=== PATIENT | female | born 1970 | race Asian ===

== ENCOUNTER 2016-08-28 21:01 | Inpatient (IN) | payer BC ==
[~2016-08-28] VITALS: Ht 154.9 cm; Wt 40.6 kg
[2016-08-28] MEDS ORDERED: SODIUM CHLORIDE 0.9% 1000ML 1,000 ML IV STA (22:30)
[2016-08-28 22:38] LABS: BASO % 0.1 %; BASO ABS # 0.01 K/uL (0-0.2); COMPLETE YES; EOS % 0.5 %; HEMATOCRIT 37.9 % (37-47); IG% 0.2 %; LYMPH % 6.8 %; MEAN CORPUSCULAR HEMOGLOBIN 33.2 pg (25-34); MEAN CORPUSCULAR HGB CONC 33.2 g/dl (32-36); MEAN PLATELET VOLUME 9.8 fL (7.4-10.4); MONO % 4.1 %; NEUT % 88.3 %; PLATELET COUNT 258 K/uL (130-400); RED BLOOD COUNT 3.79 M/uL (4.2-5.4); WHITE BLOOD COUNT 10.23 K/uL (4.8-10.8)
[2016-08-28] MEDS ORDERED: ONDANSETRON INJ 2 MG/ML 2 ML VIAL IV STA (22:51)
[2016-08-28 22:54] LABS: URINE APPEARANCE CLOUDY (CLEAR); URINE COLOR DK YELLOW; URINE EPITHELIAL CELL AUTO >30 /lpf (0-5); URINE NITRITE NEG (NEG); URINE SPECIFIC GRAVITY 1.024 (1.000-1.030); UROBILINOGEN NEG (NEG); ZZUR CULT IF INDIC CLEAN CATCH YES
[2016-08-28 23:02] LABS: MANUAL MICROSCOPIC REQUIRED? NO; REVIEW REQ? YES
[2016-08-28 23:03] LABS: URINE BILIRUBIN NEG (NEG)
[2016-08-28] MEDS: MoRPHine SULFATE 4 MG/ML 1 ML CARP\\VIAL IV PRN (23:06)
[2016-08-28 23:07] LABS: ALKALINE PHOSPHATASE 33 U/L (45-117); ALT/SGPT 22 U/L (12-78); BLOOD UREA NITROGEN 11 mg/dl (7-18); BUN/CREATININE RATIO 13.1 (10-20); CARBON DIOXIDE 27 mmol/L (21-32); CHLORIDE 103 mmol/L (98-107); CREATININE 0.84 mg/dl (0.60-1.20); GLUCOSE 101 mg/dl (70-99); SODIUM 139 mmol/L (136-145)
[2016-08-28 23:38] LABS: POTASSIUM 3.6 mmol/L (3.5-5.1)
[2016-08-29] MEDS ORDERED: OPTIRAY 320 IV PRN (00:15)
[2016-08-29 00:18] LABS: PREG INTERNAL NEGATIVE QC NEG CLEAR BACKGROUND; PREG INTERNAL POSITIVE QC POS CONTROL LINE
[2016-08-29] MEDS: MoRPHine SULFATE 4 MG/ML 1 ML CARP\\VIAL IV PRN (01:31)
[2016-08-29] MEDS ORDERED: ACETAMINOPHEN 325 MG TAB PO PRN (02:45)
[2016-08-29] MEDS ORDERED: ONDANSETRON INJ 2 MG/ML 2 ML VIAL IV PRN (02:45)
[2016-08-29] MEDS ORDERED: MoRPHine SULFATE 2 MG/ML CARP IV PRN (02:45)
[2016-08-29 03:20] VITALS: Ht 154.9 cm; Wt 40.6 kg
[2016-08-29] MEDS: SODIUM CHLORIDE 0.9% 1000ML 1,000 ML IV SCH ×3 (03:25→22:13)
[2016-08-29 03:30] VITALS: BP 90/56; PULSE 52; TEMP 36.6; O2SAT 99
--- NOTE | 2016-08-29 03:38 | EMERGENCY ROOM VISIT NOTE ---
History Report prepared by Suyapa: Talisha Vaughn Under the Supervision of: Dr. Howard Mccoy M.D. First contact with patient: 22:30 Chief Complaint: ABDOMINAL PAIN Stated Complaint: ABD PAIN History of Present Illness The patient is a 45 year old female who presents to the Emergency Room with complaints of worsened upper abdominal pain that initially began last evening around 2100. She currently rates her discomfort as an 8/10 in severity. The patient states that she started noticing the abdominal pain last evening and noticed increased pain with ambulation. She states that she was up all night with the pain and additionally tried Advil without relief of her symptoms. The patient states that this morning she went to Urgent Care and was given Zofran for her nausea. She states that she slept for a few hours and felt better when she woke up. The patient states that she ate a small amount this evening, and noticed that her pain worsened. She states that she vomited as well. The patient states that she had similar pain twenty years ago, noting that she had an appendectomy and then six months later she had a bowel obstruction. She denies being on any prescription medications. Pt denies LOC, headache, fevers, chills, diaphoresis, visual changes, neck pain, chest pain, breathing difficulties, back pain, melena, hematochezia, urinary symptoms, numbness, weakness, lymphadenopathy, rash, or other complaints. Source of History: patient Onset: last evening around 2100 Position: abdomen (upper) Symptom Intensity: 8/10 Timing: worsening Modifying Factors (Worsening): other (ambulation) Modifying Factors (Relieving): other (zofran) Associated Symptoms: + nausea, + vomiting Review of Systems See HPI for pertinent positives and negatives. A total of ten systems were reviewed and were otherwise negative. Past Medical & Surgical Medical Problems: (1) Small bowel obstruction due to adhesions Surgical Problems: (1) S/P appendectomy Family History Patient reports no known family medical history. Social History Smoking Status: Current Every Day Smoker Alcohol Use: occasionally Marital Status: Housing Status: lives with family Occupation Status: employed Current/Historical Medications No Active Prescriptions or Reported Meds Allergies Coded Allergies: No Known Allergies (Unverified , 08/28/16) Physical Exam Vital Signs Date Time Temp Pulse Resp B/P (MAP) Pulse Ox O2 Delivery O2 Flow Rate FiO2 08/29/16 01:45 55 26 103/60 100 Room Air 08/28/16 23:29 63 94/61 94 Room Air 08/28/16 21:07 36.7 63 20 93/62 95 Room Air Physical Exam GENERAL: Awake, alert, uncomfortable-appearing, in no distress HENT: Normocephalic, atraumatic. Oropharynx unremarkable. EYES: Normal conjunctiva. Sclera non-icteric. NECK: Supple. No nuchal rigidity. FROM. No JVD. RESPIRATORY: Clear to auscultation. CARDIAC: Regular rate, normal rhythm. Extremities warm and well perfused. Pulses equal. ABDOMEN: Diffuse abdominal tenderness to palpation. Soft, non-distended. No rebound or guarding. No masses. RECTAL: Deferred. MUSCULOSKELETAL: Chest examination reveals no tenderness. The back is symmetrical on inspection without obvious abnormality. There is no CVA tenderness to palpation. No joint edema. LOWER EXTREMITIES: Calves are equal size bilaterally and non-tender. No edema. No discoloration. NEURO: Normal sensorium. No sensory or motor deficits noted. SKIN: No rash or jaundice noted. Medical Decision & Procedures ER Provider Diagnostic Interpretation: Radiology results as stated below per my review and radiologist interpretation: CT ABDOMEN AND PELVIS: Small bowel obstruction. Distal transition point in the mid pelvis (image 51, series 2). Component of closed-loop obstruction should be considered as there is focal narrowing of the more proximal dilated bowel with a swirling appearance (images 56-59, series 2). Small amount of free fluid. No free air. 9 mm right renal hypodensity, statistically likely a cyst but measuring denser than fluid. Radiologist: Miguelangel Pierson MD Study ready at 0131 and initial results transmitted at 0150 Laboratory Results 08/28/16 21:55 Red Blood Count 3.79, Mean Corpuscular Volume 100.0, Mean Corpuscular Hemoglobin 33.2, Mean Corpuscular Hemoglobin Concent 33.2, Mean Platelet Volume 9.8, Neutrophils (%) (Auto) 88.3, Lymphocytes (%) (Auto) 6.8, Monocytes (%) ( Auto) 4.1, Eosinophils (%) (Auto) 0.5, Basophils (%) (Auto) 0.1, Neutrophils # ( Auto) 9.03, Lymphocytes # (Auto) 0.70, Monocytes # (Auto) 0.42, Eosinophils # ( Auto) 0.05, Basophils # (Auto) 0.01 08/28/16 21:55 08/28/16 23:11 Test 08/28/16 21:55 08/28/16 23:11 White Blood Count 10.23 K/uL (4.8-10.8) Red Blood Count 3.79 M/uL (4.2-5.4) Hemoglobin 12.6 g/dL (12.0-16.0) Hematocrit 37.9 % (37-47) Mean Corpuscular Volume 100.0 fL (80-100) Mean Corpuscular Hemoglobin 33.2 pg (25-34) Mean Corpuscular Hemoglobin Concent 33.2 g/dl (32-36) Platelet Count 258 K/uL (130-400) Mean Platelet Volume 9.8 fL (7.4-10.4) Neutrophils (%) (Auto) 88.3 % Lymphocytes (%) (Auto) 6.8 % Monocytes (%) (Auto) 4.1 % Eosinophils (%) (Auto) 0.5 % Basophils (%) (Auto) 0.1 % Neutrophils # (Auto) 9.03 K/uL (1.4-6.5) Lymphocytes # (Auto) 0.70 K/uL (1.2-3.4) Monocytes # (Auto) 0.42 K/uL (0.11-0.59) Eosinophils # (Auto) 0.05 K/uL (0-0.5) Basophils # (Auto) 0.01 K/uL (0-0.2) RDW Standard Deviation 48.0 fL (36.4-46.3) RDW Coefficient of Variation 13.1 % (11.5-14.5) Immature Granulocyte % (Auto) 0.2 % Immature Granulocyte # (Auto) 0.02 K/uL (0.00-0.02) Urine Color DK YELLOW Urine Appearance CLOUDY (CLEAR) Urine pH 6.0 (4.5-7.5) Urine Specific [place] 1.024 (1.000-1.030) Urine Protein NEG (NEG) Urine Glucose (UA) NEG (NEG) Urine Ketones 3+ (NEG) Urine Occult Blood 3+ (NEG) Urine Nitrite NEG (NEG) Urine Bilirubin NEG (NEG) Urine Urobilinogen NEG (NEG) Urine Leukocyte Esterase MODERATE (NEG) Urine WBC (Auto) 10-30 /hpf (0-5) Urine RBC (Auto) 0-4 /hpf (0-4) Urine Hyaline Casts (Auto) 5-10 /lpf (0-5) Urine Epithelial Cells (Auto) >30 /lpf (0-5) Urine Bacteria (Auto) NEG (NEG) Urine Crystals CALCIUM OXALATE (NONE Anion Gap 9.0 mmol/L (3-11) Est Creatinine Clear Calc Drug Dose 54.8 ml/min Estimated GFR () 98.0 Estimated GFR (Non- 84.5 BUN/Creatinine Ratio 13.1 (10-20) Calcium Level 9.0 mg/dl (8.5-10.1) Total Bilirubin 0.7 mg/dl (0.2-1) Alanine Aminotransferase (ALT/SGPT) 22 U/L (12-78) Alkaline Phosphatase 33 U/L (45-117) Total Protein 6.6 gm/dl (6.4-8.2) Albumin 3.8 gm/dl (3.4-5.0) Lipase 69 U/L (73-393) Human Chorionic Gonadotropin, Qual NEG (NEG) Direct Bilirubin 0.1 mg/dl (0-0.2) Aspartate Amino Transf (AST/SGOT) 10 U/L (15-37) Laboratory results reviewed by me Medications Administered Medications (Trade) Dose Ordered Sig/Yu Route Start Time Stop Time Status Last Admin Dose Admin Sodium Chloride 1,000 ml @ 999 mls/hr Q1H1M STAT IV 08/28/16 22:30 08/28/16 23:30 DC 08/28/16 22:41 999 MLS/HR Ondansetron HCl (Zofran Inj) 4 mg NOW STAT IV 08/28/16 22:51 08/28/16 22:54 DC 08/28/16 23:06 4 MG Morphine Sulfate (MoRPHine SULFATE INJ) 4 mg Q15M PRN IV 08/28/16 23:00 09/11/16 22:59 08/29/16 01:31 4 MG ED Course 2230: Ordered Sodium Chloride 1000 ml @ 999 mls/hr IV. 2248: The patient was evaluated in room C12B. A complete history and physical exam was performed. 2251: Ordered Zofran Inj 4 mg IV. 2300: Ordered Morphine Sulfate 4 mg IV. 2325: I reevaluated the patient and she is feeling better. 0200: I reevaluated the patient and she is resting comfortably. I discussed the exam findings with her and I discussed the treatment plan. She verbalized complete understanding and agreement. She is going to be evaluated for further treatment. 0206: I discussed the patient's case with Joy Watt. He will evaluate the patient for further treatment. Medical Decision Medication Reconciliation: I attest that I have personally reviewed the patient' s current medication list Blood pressure screening: Patient was found to have low blood pressure on screening and does not require follow-up. Triage Nursing notes reviewed. The patient's presentation and history were concerning for abdominal pain. Etiologies such as obstruction, diverticulitis, inflammatory bowel disease, renal colic, PUD, biliary pathology, pancreatitis, mesenteric ischemia, aortic pathology, infections, genitourinary, UTI, perforated viscus, as well as others were entertained. The patient was evaluated. She was treated with normal saline, Zofran and morphine. She felt much better with this. She had minimal symptoms afterwards. She underwent CT imaging and blood work. The patient had an unremarkable cbc, chemistry panel, LFTs and lipase. Urinalysis may have been somewhat contaminated. Culture is pending. CT imaging was concerning for a small bowel obstruction. I discussed this with the patient. She will need further evaluation and management in the hospital. As she is asymptomatic at this time an NG tube was not immediately placed. I did discuss this with internal medicine. The patient will be evaluated for further management and consultation as necessary. Consults Time Called: [phone] Consulting Physician: Joy Watt Returned Call: [phone] I discussed the patient's case with Joy Watt. He will evaluate the patient for further treatment. Impression Primary Impression: Small bowel obstruction Scribe Attestation The scribe's documentation has been prepared under my direction and personally reviewed by me in its entirety. I confirm that the note above accurately reflects all work, treatment, procedures, and medical decision making performed by me. Departure Information Dispostion Being Evaluated By Hospitalist Prescriptions No Active Prescriptions or Reported Meds Referrals No Doctor, Assigned (PCP)
--- NOTE | 2016-08-29 04:10 | History and Physical ---
History & Physical Date & Time of Service: Aug 29, 2016 at 04:01 Chief Complaint: Small Bowel Obstruction Due To Adhesions Primary Care Physician: No Doctor, Assigned History of Present Illness Source: patient This is a 45 year old female with a hx. of appendectomy ~ 20 years ago, presents with acute abdominal pain; nausea - states she went to an urgent care facility due to her abdominal pain and distention; was given Zofran, but was told to come to the ER for further evaluation. She presented to the ER and CT was done; showed likely partial small bowel obstruction; she states that she's had this in the past once before after her appendectomy; feels the same as before. Last BM was August 27 in the AM. No fevers/chills. Past Medical/Surgical History Surgical Problems: (1) S/P appendectomy Status: Resolved Family History Patient reports no known family medical history. Social History Smoking Status: Current Every Day Smoker Marital Status: Occupational Status: employed Allergies Coded Allergies: No Known Allergies (Unverified , 08/28/16) Home Medications No Active Prescriptions or Reported Meds Review of Systems Constitutional: + weakness, No fever, No chills Respiratory: No cough, No shortness of breath Cardiovascular: No chest pain, No edema, No palpitations Abdomen: + pain, + nausea, No vomiting, No diarrhea, No constipation, No GI bleeding Musculoskeletal: No joint pain Genitourinary - Female: No dysuria, No urinary frequency, No urinary urgency, No urinary incontinence, No urinary retention, No hematuria Neurologic: + weakness, No numbness/tingling, No vertigo, No balance problems Psychiatric: No depression symptoms Hematologic / Lymphatic: No abnormal bleeding/bruising Allergic / Immunologic: No environmental allergies, No seasonal allergies Physical Exam Vital Signs Date Time Temp Pulse Resp B/P (MAP) Pulse Ox O2 Delivery O2 Flow Rate FiO2 08/29/16 03:30 36.6 52 17 90/56 (67) 99 Room Air 08/29/16 03:07 48 85/52 97 08/29/16 01:45 55 26 103/60 100 Room Air 08/28/16 23:29 63 94/61 94 Room Air 08/28/16 21:07 36.7 63 20 93/62 95 Room Air General Appearance: no apparent distress, + thin Head: normocephalic, atraumatic Eyes: normal inspection Respiratory/Chest: chest non-tender, lungs clear, normal breath sounds, no respiratory distress, no accessory muscle use Cardiovascular: regular rate, rhythm, no edema, no murmur Abdomen/GI: + tenderness (diffusely), + abnormal bowel sounds (decreased bowel sounds), + distended Extremities/Musculoskelatal: normal capillary refill, no pedal edema Neurologic/Psych: no motor/sensory deficits, alert, normal mood/affect Skin: normal color Lymphatic: no adenopathy Diagnostics Laboratory Results Results Past 24 Hours Test 08/28/16 21:55 08/28/16 23:11 Range/Units White Blood Count 10.23 4.8-10.8 K/uL Red Blood Count 3.79 4.2-5.4 M/uL Hemoglobin 12.6 12.0-16.0 g/dL Hematocrit 37.9 37-47 % Mean Corpuscular Volume 100.0 80-100 fL Mean Corpuscular Hemoglobin 33.2 25-34 pg Mean Corpuscular Hemoglobin Concent 33.2 32-36 g/dl Platelet Count 258 130-400 K/uL Mean Platelet Volume 9.8 7.4-10.4 fL Neutrophils (%) (Auto) 88.3 % Lymphocytes (%) (Auto) 6.8 % Monocytes (%) (Auto) 4.1 % Eosinophils (%) (Auto) 0.5 % Basophils (%) (Auto) 0.1 % Neutrophils # (Auto) 9.03 1.4-6.5 K/uL Lymphocytes # (Auto) 0.70 1.2-3.4 K/uL Monocytes # (Auto) 0.42 0.11-0.59 K/uL Eosinophils # (Auto) 0.05 0-0.5 K/uL Basophils # (Auto) 0.01 0-0.2 K/uL RDW Standard Deviation 48.0 36.4-46.3 fL RDW Coefficient of Variation 13.1 11.5-14.5 % Immature Granulocyte % (Auto) 0.2 % Immature Granulocyte # (Auto) 0.02 0.00-0.02 K/uL Urine Color DK YELLOW Urine Appearance CLOUDY CLEAR Urine pH 6.0 4.5-7.5 Urine Specific [place] 1.024 1.000-1.030 Urine Protein NEG NEG Urine Glucose (UA) NEG NEG Urine Ketones 3+ NEG Urine Occult Blood 3+ NEG Urine Nitrite NEG NEG Urine Bilirubin NEG NEG Urine Urobilinogen NEG NEG Urine Leukocyte Esterase MODERATE NEG Urine WBC (Auto) 10-30 0-5 /hpf Urine RBC (Auto) 0-4 0-4 /hpf Urine Hyaline Casts (Auto) 5-10 0-5 /lpf Urine Epithelial Cells (Auto) >30 0-5 /lpf Urine Bacteria (Auto) NEG NEG Urine Crystals CALCIUM OXALATE NONE PRSENT Sodium Level 139 136-145 mmol/L Potassium Level 3.6 3.5-5.1 mmol/L Chloride Level 103 98-107 mmol/L Carbon Dioxide Level 27 21-32 mmol/L Anion Gap 9.0 3-11 mmol/L Blood Urea Nitrogen 11 7-18 mg/dl Creatinine 0.84 0.60-1.20 mg/dl Est Creatinine Clear Calc Drug Dose 54.8 ml/min Estimated GFR () 98.0 Estimated GFR (Non- 84.5 BUN/Creatinine Ratio 13.1 10-20 Random Glucose 101 70-99 mg/dl Calcium Level 9.0 8.5-10.1 mg/dl Total Bilirubin 0.7 0.2-1 mg/dl Direct Bilirubin 0.1 0-0.2 mg/dl Aspartate Amino Transf (AST/SGOT) 10 15-37 U/L Alanine Aminotransferase (ALT/SGPT) 22 12-78 U/L Alkaline Phosphatase 33 45-117 U/L Total Protein 6.6 6.4-8.2 gm/dl Albumin 3.8 3.4-5.0 gm/dl Lipase 69 73-393 U/L Human Chorionic Gonadotropin, Qual NEG NEG Microbiology Results 08/28/16 Urine Culture, Received Pending Diagnostic Radiology CT ABDOMEN AND PELVIS: Small bowel obstruction. Distal transition point in the mid pelvis (image 51, series 2). Component of closed-loop obstruction should be considered as there is focal narrowing of the more proximal dilated bowel with a swirling appearance (images 56-59, series 2). Small amount of free fluid. No free air. 9 mm right renal hypodensity, statistically likely a cyst but measuring denser than fluid. Radiologist: Miguelangel Pierson MD Impression Assessment and Plan This is a 45 year old female with a hx. of appendectomy ~ 20 years ago, presents with acute abdominal pain found to have small bowel obstruction Small Bowel Obstruction Abdominal CT = small bowel obstruction likely secondary to adhesions due to previous surgery NPO, IVFs for now Zofran PRN, morphine PRN general surgery consultation no NGT for now, symptoms improving FULL CODE VTE Prophylaxis VTE Risk Assessment Done? Y/N: Yes Risk Level: Low Given or contraindicated: Treatment not indicated
--- NOTE | 2016-08-29 06:36 | DIAGNOSTIC IMAGING REPORT ---
CT ABD/PELVIS IV AND ORAL CONT CLINICAL HISTORY: Midline abdominal pain. Nausea, vomiting. COMPARISON STUDY: None. TECHNIQUE: Following the IV administration of 92 mL of Optiray-320, CT scan of the abdomen and pelvis was performed from the lung bases to the proximal femurs. Images are reviewed in the axial, sagittal, and coronal planes. IV contrast was administered without complication. CT DOSE: 233.98 mGy.cm FINDINGS: Lower chest: The heart is normal in size and configuration, without pericardial effusion. The lung bases and pleural spaces are clear. Liver: The contrast-enhanced liver is normal in size, contour, and attenuation. There is no intrahepatic biliary ductal dilatation. The hepatic veins and portal veins are patent. Gallbladder: Unremarkable. Spleen: Normal in size and attenuation. Pancreas: Unremarkable. Adrenal glands: Unremarkable. Kidneys: There is 8 mm hypodensity within the midpole the right kidney. This slightly exceeds water attenuation. There is an 8 mm hypodensity within the midpole the left kidney. This also exceeds water attenuation. Bowel: There are multiple dilated fluid-filled small bowel loops. Distal small bowel loops are of normal caliber. The colon is decompressed. The findings are consistent with a small bowel obstruction. Peritoneum: There is trace free fluid present. No free intraperitoneal air is visualized. Vasculature: The abdominal aorta is normal in course and caliber. Adenopathy: None. Pelvic viscera: The bladder, and pelvic viscera are unremarkable. Skeletal structures: No destructive osseous lesions are seen. IMPRESSION: 1. Small bowel obstruction. A closed loop obstruction cannot be excluded. Trace free fluid. No pneumatosis. No portal venous gas is identified. 2. Indeterminate subcentimeter renal hypodensities which exceed water attenuation Electronically signed by: Arthur John M.D. 08/29/2016 6:34 AM Dictated Date/Time: 08/29/2016 6:29 AM
[2016-08-29 07:04] VITALS: BP 90/56; PULSE 54; TEMP 37; O2SAT 94
--- NOTE | 2016-08-29 10:37 | Surgery Consultation ---
Consultation Date of Consultation: Aug 29, 2016. Attending Physician: Pooja. Bhakta S Reason for Consultation: Small Bowel Obstruction History of Present Illness Sd is a 45 year-old female who presented to emergency department on 2016 with complaint of abdominal pain, nausea, and vomiting that began on Saturday. She states she started with some bloating and nausea and vomiting. States she was not that hungry on Saturday. Abdominal pain increased Saturday morning and continued to increase in severity with associated nausea and vomiting. She went to urgent care in which they gave her some zofran but told her to repot to emergency department. She states she had a similar hospitalization and surgery about 20 years ago following her appendectomy. States she had a NGT placed and needed to have surgery at that time and had a bowel resection. Denies of any other small bowel obstruction since. Her last bowel movement was Saturday Morning. She had a CT scan of abdomen and pelvis which showed findings of a small bowel obstruction and a closed loop obstruction could not be excluded. Her vitals on admission showed hypotension. No white count. Since being admitted she states she feels slightly better but is still having pain. States she has not passed any gas yet nor had a bowel movement. Past Medical/Surgical History Medical Problems: (1) Small bowel obstruction Status: Acute Family History Patient reports no known family medical history. Social History Smoking Status: Current Every Day Smoker Alcohol Use: Drinks 3 glasses daily Marital Status: Housing Status: lives with family Occupation Status: employed Allergies Coded Allergies: No Known Allergies (Unverified , 08/28/16) Home Medications No Active Prescriptions or Reported Meds Current Inpatient Medications Current Inpatient Medications Medications (Trade) Dose Ordered Sig/Yu Route Start Time Stop Time Status Last Admin Dose Admin Ioversol (Optiray 320) 100 ml UD PRN IV 08/29/16 00:15 09/02/16 00:14 Acetaminophen (Tylenol Tab) 650 mg Q4H PRN PO 08/29/16 02:45 09/28/16 02:44 Ondansetron HCl (Zofran Inj) 4 mg Q4H PRN IV 08/29/16 02:45 09/28/16 02:44 Morphine Sulfate (MoRPHine SULFATE INJ) 2 mg Q4 PRN IV 08/29/16 02:45 09/12/16 02:44 Sodium Chloride 1,000 ml @ 100 mls/hr Q10H IV 08/29/16 02:45 09/28/16 02:44 08/29/16 03:25 80 MLS/HR Review of Systems Constitutional: No fever, No chills Respiratory: No shortness of breath Cardiovascular: No chest pain Abdomen: + pain, + nausea Physical Exam Date Time Temp Pulse Resp B/P (MAP) Pulse Ox O2 Delivery O2 Flow Rate FiO2 08/29/16 07:15 Room Air 08/29/16 07:04 37.0 54 16 90/56 (67) 94 Room Air 08/29/16 03:30 36.6 52 17 90/56 (67) 99 Room Air 08/29/16 03:20 Room Air 08/29/16 03:20 Room Air 08/29/16 03:07 48 85/52 97 08/29/16 01:45 55 26 103/60 100 Room Air 08/28/16 23:29 63 94/61 94 Room Air 08/28/16 21:07 36.7 63 20 93/62 95 Room Air General Appearance: WD/WN, no apparent distress Head: normocephalic, atraumatic Eyes: sclerae normal ENT: hearing grossly normal Neck: trachea midline Respiratory/Chest: lungs clear, normal breath sounds, no respiratory distress, no accessory muscle use Cardiovascular: regular rate, rhythm, no murmur Abdomen/GI: soft, + tenderness (generalized tenderness, no peritonitis or rigidity), + distended Back: normal inspection Extremities/Musculoskelatal: normal inspection, no pedal edema Neurologic/Psych: alert, normal mood/affect, oriented x 3 Skin: normal color, warm/dry, no rash Laboratory Results Last 24 Hours Test 08/28/16 21:55 08/28/16 23:11 White Blood Count 10.23 K/uL Red Blood Count 3.79 M/uL Hemoglobin 12.6 g/dL Hematocrit 37.9 % Mean Corpuscular Volume 100.0 fL Mean Corpuscular Hemoglobin 33.2 pg Mean Corpuscular Hemoglobin Concent 33.2 g/dl Platelet Count 258 K/uL Mean Platelet Volume 9.8 fL Neutrophils (%) (Auto) 88.3 % Lymphocytes (%) (Auto) 6.8 % Monocytes (%) (Auto) 4.1 % Eosinophils (%) (Auto) 0.5 % Basophils (%) (Auto) 0.1 % Neutrophils # (Auto) 9.03 K/uL Lymphocytes # (Auto) 0.70 K/uL Monocytes # (Auto) 0.42 K/uL Eosinophils # (Auto) 0.05 K/uL Basophils # (Auto) 0.01 K/uL RDW Standard Deviation 48.0 fL RDW Coefficient of Variation 13.1 % Immature Granulocyte % (Auto) 0.2 % Immature Granulocyte # (Auto) 0.02 K/uL Urine Color DK YELLOW Urine Appearance CLOUDY Urine pH 6.0 Urine Specific [place] 1.024 Urine Protein NEG Urine Glucose (UA) NEG Urine Ketones 3+ Urine Occult Blood 3+ Urine Nitrite NEG Urine Bilirubin NEG Urine Urobilinogen NEG Urine Leukocyte Esterase MODERATE Urine WBC (Auto) 10-30 /hpf Urine RBC (Auto) 0-4 /hpf Urine Hyaline Casts (Auto) 5-10 /lpf Urine Epithelial Cells (Auto) >30 /lpf Urine Bacteria (Auto) NEG Urine Crystals CALCIUM OXALATE Sodium Level 139 mmol/L Potassium Level mmol/L 3.6 mmol/L Chloride Level 103 mmol/L Carbon Dioxide Level 27 mmol/L Anion Gap 9.0 mmol/L Blood Urea Nitrogen 11 mg/dl Creatinine 0.84 mg/dl Est Creatinine Clear Calc Drug Dose 54.8 ml/min Estimated GFR () 98.0 Estimated GFR (Non- 84.5 BUN/Creatinine Ratio 13.1 Random Glucose 101 mg/dl Calcium Level 9.0 mg/dl Total Bilirubin 0.7 mg/dl Direct Bilirubin mg/dl 0.1 mg/dl Aspartate Amino Transf (AST/SGOT) U/L 10 U/L Alanine Aminotransferase (ALT/SGPT) 22 U/L Alkaline Phosphatase 33 U/L Total Protein 6.6 gm/dl Albumin 3.8 gm/dl Lipase 69 U/L Human Chorionic Gonadotropin, Qual NEG Assessment & Plan Small Bowel Obstruction - Vitals stable - no leukocytosis - CT scan showing findings of small bowel obstruction, closed loop obstruction could not be excluded - abdomen is soft, tender, no peritonitis Plan: Place NGT NGT to [facility] for placement of NGT Continue Conservative management at this time: Keep patient NPO, IV fluids, IV pain management, IV zofran as needed Will closely monitor in next 48 hours, hopefully will not require surgical intervention await return of bowel function Dr. Prabhakar has seen and examined patient, agrees with above
--- NOTE | 2016-08-29 10:53 | DIAGNOSTIC IMAGING REPORT ---
KUB CLINICAL HISTORY: s/p NGT placement tube position COMPARISON STUDY: No previous studies for comparison. FINDINGS: Nasogastric tube coiled within the stomach. Tip of the catheter is at the gastric fundus. Contrast within bowel from prior CT study. IMPRESSION: Nasogastric tube coiled within the stomach with the tip of the catheter at the gastric fundus Electronically signed by: Adama Macias M.D. 08/29/2016 10:51 AM Dictated Date/Time: 08/29/2016 10:50 AM
--- NOTE | 2016-08-29 12:20 | Progress Note ---
Internal Med Progress Note Date of Service: Aug 29, 2016. Provider Documentation: SUBJECTIVE: Patient still has abdominal pain Nausea is better NG tube inserted No fever, chills OBJECTIVE: Vital Signs-as noted below Exam: General-AAOX3, no distress HEENT- NG tube + Neck-Supple Lungs-AEBE, no wheezing, rhonchi Heart-S1, S2 normal, no murmurs Abdomen-Soft, tenderness +, No rigidity, BS sluggish Extremities-No edema Lab data as noted below. ASSESSMENT & PLAN: This is a 45 year old female with a hx. of appendectomy ~ 20 years ago, presents with acute abdominal pain found to have small bowel obstruction. SBO: -Likely secondary to adhesions -NGT inserted, IV Fluids, NPO -Work up- CT abd/pelvis- SBO, -Appreciate surgery inputs DVT PROPHYLAXIS SCDS TEDS FULL CODE Vital Signs: Date Time Temp Pulse Resp B/P (MAP) Pulse Ox O2 Delivery O2 Flow Rate FiO2 08/29/16 07:15 Room Air 08/29/16 07:04 37.0 54 16 90/56 (67) 94 Room Air 08/29/16 03:30 36.6 52 17 90/56 (67) 99 Room Air 08/29/16 03:20 Room Air 08/29/16 03:20 Room Air 08/29/16 03:07 48 85/52 97 08/29/16 01:45 55 26 103/60 100 Room Air 08/28/16 23:29 63 94/61 94 Room Air 08/28/16 21:07 36.7 63 20 93/62 95 Room Air Lab Results: Results Past 24 Hours Test 08/28/16 21:55 08/28/16 23:11 Range/Units White Blood Count 10.23 4.8-10.8 K/uL Red Blood Count 3.79 4.2-5.4 M/uL Hemoglobin 12.6 12.0-16.0 g/dL Hematocrit 37.9 37-47 % Mean Corpuscular Volume 100.0 80-100 fL Mean Corpuscular Hemoglobin 33.2 25-34 pg Mean Corpuscular Hemoglobin Concent 33.2 32-36 g/dl Platelet Count 258 130-400 K/uL Mean Platelet Volume 9.8 7.4-10.4 fL Neutrophils (%) (Auto) 88.3 % Lymphocytes (%) (Auto) 6.8 % Monocytes (%) (Auto) 4.1 % Eosinophils (%) (Auto) 0.5 % Basophils (%) (Auto) 0.1 % Neutrophils # (Auto) 9.03 1.4-6.5 K/uL Lymphocytes # (Auto) 0.70 1.2-3.4 K/uL Monocytes # (Auto) 0.42 0.11-0.59 K/uL Eosinophils # (Auto) 0.05 0-0.5 K/uL Basophils # (Auto) 0.01 0-0.2 K/uL RDW Standard Deviation 48.0 36.4-46.3 fL RDW Coefficient of Variation 13.1 11.5-14.5 % Immature Granulocyte % (Auto) 0.2 % Immature Granulocyte # (Auto) 0.02 0.00-0.02 K/uL Urine Color DK YELLOW Urine Appearance CLOUDY CLEAR Urine pH 6.0 4.5-7.5 Urine Specific [place] 1.024 1.000-1.030 Urine Protein NEG NEG Urine Glucose (UA) NEG NEG Urine Ketones 3+ NEG Urine Occult Blood 3+ NEG Urine Nitrite NEG NEG Urine Bilirubin NEG NEG Urine Urobilinogen NEG NEG Urine Leukocyte Esterase MODERATE NEG Urine WBC (Auto) 10-30 0-5 /hpf Urine RBC (Auto) 0-4 0-4 /hpf Urine Hyaline Casts (Auto) 5-10 0-5 /lpf Urine Epithelial Cells (Auto) >30 0-5 /lpf Urine Bacteria (Auto) NEG NEG Urine Crystals CALCIUM OXALATE NONE PRSENT Sodium Level 139 136-145 mmol/L Potassium Level 3.6 3.5-5.1 mmol/L Chloride Level 103 98-107 mmol/L Carbon Dioxide Level 27 21-32 mmol/L Anion Gap 9.0 3-11 mmol/L Blood Urea Nitrogen 11 7-18 mg/dl Creatinine 0.84 0.60-1.20 mg/dl Est Creatinine Clear Calc Drug Dose 54.8 ml/min Estimated GFR () 98.0 Estimated GFR (Non- 84.5 BUN/Creatinine Ratio 13.1 10-20 Random Glucose 101 70-99 mg/dl Calcium Level 9.0 8.5-10.1 mg/dl Total Bilirubin 0.7 0.2-1 mg/dl Direct Bilirubin 0.1 0-0.2 mg/dl Aspartate Amino Transf (AST/SGOT) 10 15-37 U/L Alanine Aminotransferase (ALT/SGPT) 22 12-78 U/L Alkaline Phosphatase 33 45-117 U/L Total Protein 6.6 6.4-8.2 gm/dl Albumin 3.8 3.4-5.0 gm/dl Lipase 69 73-393 U/L Human Chorionic Gonadotropin, Qual NEG NEG Microbiology Results 08/28/16 Urine Culture, Received Pending
[2016-08-29 14:57] VITALS: BP 96/61; PULSE 59; TEMP 36.9; O2SAT 97
[2016-08-29 23:09] VITALS: BP 98/63; PULSE 58; TEMP 36.6; O2SAT 95
[2016-08-30 06:45] LABS: HEMATOCRIT 36.5 % (37-47); MEAN CELL VOLUME 103.7 fL (80-100); MEAN CORPUSCULAR HEMOGLOBIN 33.5 pg (25-34); MEAN CORPUSCULAR HGB CONC 32.3 g/dl (32-36); MEAN PLATELET VOLUME 9.5 fL (7.4-10.4); PLATELET COUNT 198 K/uL (130-400); RED BLOOD COUNT 3.52 M/uL (4.2-5.4); WHITE BLOOD COUNT 6.79 K/uL (4.8-10.8)
[2016-08-30 07:16] LABS: BUN/CREATININE RATIO 25.1 (10-20); CALCIUM 7.9 mg/dl (8.5-10.1); CREATININE 0.62 mg/dl (0.60-1.20); POTASSIUM 3.5 mmol/L (3.5-5.1)
[2016-08-30 07:37] VITALS: BP 93/54; PULSE 67; TEMP 36.8; O2SAT 96
[2016-08-30] MEDS: SODIUM CHLORIDE 0.9% 1000ML 1,000 ML IV SCH ×2 (08:46→18:38)
--- NOTE | 2016-08-30 09:15 | Surgery Progress Note ---
Surgery Progress Note Date of Service Aug 30, 2016. Subjective Post OP Day: HD # 1 + feeling well, + bowel movement, + flatus, + pain controlled, No complaints, No chest pain, No SOB, No nausea, No vomiting Objective Vital Signs: Date Time Temp Pulse Resp B/P (MAP) Pulse Ox O2 Delivery O2 Flow Rate FiO2 08/30/16 07:37 36.8 67 16 93/54 (67) 96 Room Air 08/29/16 23:55 Room Air 08/29/16 23:09 36.6 58 16 98/63 (75) 95 Room Air 08/29/16 16:10 Room Air 08/29/16 14:57 36.9 59 16 96/61 (73) 97 Room Air Physical Exam: nasogastric drainage (bilious, dark brown) General Appearance: WD/WN, no apparent distress Head: normocephalic, atraumatic Neck: trachea midline Respiratory/Chest: lungs clear, normal breath sounds, no respiratory distress, no accessory muscle use Cardiovascular: regular rate, rhythm, no murmur Abdomen: non tender (no rebound, rigidity, or peritonitis, much improved compared to yesterday), soft, + distended, + pertinent finding (midline laparotomy scar present) Laboratory Results: Results Past 24 Hours Test 08/30/16 06:30 Range/Units White Blood Count 6.79 4.8-10.8 K/uL Red Blood Count 3.52 4.2-5.4 M/uL Hemoglobin 11.8 12.0-16.0 g/dL Hematocrit 36.5 37-47 % Mean Corpuscular Volume 103.7 80-100 fL Mean Corpuscular Hemoglobin 33.5 25-34 pg Mean Corpuscular Hemoglobin Concent 32.3 32-36 g/dl RDW Standard Deviation 50.7 36.4-46.3 fL RDW Coefficient of Variation 13.4 11.5-14.5 % Platelet Count 198 130-400 K/uL Mean Platelet Volume 9.5 7.4-10.4 fL Sodium Level 140 136-145 mmol/L Potassium Level 3.5 3.5-5.1 mmol/L Chloride Level 108 98-107 mmol/L Carbon Dioxide Level 21 21-32 mmol/L Anion Gap 11.0 3-11 mmol/L Blood Urea Nitrogen 16 7-18 mg/dl Creatinine 0.62 0.60-1.20 mg/dl Est Creatinine Clear Calc Drug Dose 74.2 ml/min Estimated GFR () 127.1 Estimated GFR (Non- 109.7 BUN/Creatinine Ratio 25.1 10-20 Random Glucose 62 70-99 mg/dl Calcium Level 7.9 8.5-10.1 mg/dl Assessment & Plan Recurrent SBO- resolving - vitals stable - 230 cc NGT output since placement, bilious/dark brown - +abdominal distention but pain improved - + bowel sounds - + bowel function Plan: d/c NGT start clear liquids continue medical management Please see Dr. Prabhakar's note from today
--- NOTE | 2016-08-30 09:19 | Progress Note ---
Internal Med Progress Note Date of Service: Aug 30, 2016. Provider Documentation: SUBJECTIVE: Patient feeling much better today. Abdominal pain has improved. No nausea, vomiting. Passed flatus, had a BM today AM No fever, chills. OBJECTIVE: Vital Signs-as noted below Exam: General-AAOX3, no distress HEENT- NG tube + Neck-Supple Lungs-AEBE, no wheezing, rhonchi Heart-S1, S2 normal, no murmurs Abdomen-Soft, tenderness +, No rigidity, BS sluggish Extremities-No edema Lab data as noted below. ASSESSMENT & PLAN: This is a 45 year old female with a hx. of appendectomy ~ 20 years ago, presents with acute abdominal pain found to have small bowel obstruction. SBO: -Likely secondary to adhesions. Has hx of SBO 20 years ago, had to undergo bowel resection than. No issues since than. -NGT inserted, IV Fluids, NPO -Work up- CT abd/pelvis- SBO, -Appreciate surgery inputs- defer management to surgery. DVT PROPHYLAXIS SCDS TEDS FULL CODE DISPOSITION Medical mx in progress Expected discharge home when stable Vital Signs: Date Time Temp Pulse Resp B/P (MAP) Pulse Ox O2 Delivery O2 Flow Rate FiO2 08/30/16 07:37 36.8 67 16 93/54 (67) 96 Room Air 08/29/16 23:55 Room Air 08/29/16 23:09 36.6 58 16 98/63 (75) 95 Room Air 08/29/16 16:10 Room Air 08/29/16 14:57 36.9 59 16 96/61 (73) 97 Room Air Lab Results: Results Past 24 Hours Test 08/30/16 06:30 Range/Units White Blood Count 6.79 4.8-10.8 K/uL Red Blood Count 3.52 4.2-5.4 M/uL Hemoglobin 11.8 12.0-16.0 g/dL Hematocrit 36.5 37-47 % Mean Corpuscular Volume 103.7 80-100 fL Mean Corpuscular Hemoglobin 33.5 25-34 pg Mean Corpuscular Hemoglobin Concent 32.3 32-36 g/dl RDW Standard Deviation 50.7 36.4-46.3 fL RDW Coefficient of Variation 13.4 11.5-14.5 % Platelet Count 198 130-400 K/uL Mean Platelet Volume 9.5 7.4-10.4 fL Sodium Level 140 136-145 mmol/L Potassium Level 3.5 3.5-5.1 mmol/L Chloride Level 108 98-107 mmol/L Carbon Dioxide Level 21 21-32 mmol/L Anion Gap 11.0 3-11 mmol/L Blood Urea Nitrogen 16 7-18 mg/dl Creatinine 0.62 0.60-1.20 mg/dl Est Creatinine Clear Calc Drug Dose 74.2 ml/min Estimated GFR () 127.1 Estimated GFR (Non- 109.7 BUN/Creatinine Ratio 25.1 10-20 Random Glucose 62 70-99 mg/dl Calcium Level 7.9 8.5-10.1 mg/dl
--- NOTE | 2016-08-30 12:07 | Surgery Progress Note ---
Surgery Progress Note Date of Service Aug 30, 2016. Subjective + feeling well pt is doing better, passed BM x2, no abdominal pain, no nausea, no vomiting, NG 100ml, Objective Vital Signs: Date Time Temp Pulse Resp B/P (MAP) Pulse Ox O2 Delivery O2 Flow Rate FiO2 08/30/16 07:37 36.8 67 16 93/54 (67) 96 Room Air 08/30/16 07:35 Room Air 08/29/16 23:55 Room Air 08/29/16 23:09 36.6 58 16 98/63 (75) 95 Room Air 08/29/16 16:10 Room Air 08/29/16 14:57 36.9 59 16 96/61 (73) 97 Room Air General Appearance: WD/WN, no apparent distress Head: normocephalic Neck: supple Respiratory/Chest: chest non-tender, lungs clear Cardiovascular: regular rate, rhythm, no edema Abdomen: normal bowel sounds, non tender, non distended, soft Extremities: normal range of motion, non-tender, normal inspection Laboratory Results: Results Past 24 Hours Test 08/30/16 06:30 Range/Units White Blood Count 6.79 4.8-10.8 K/uL Red Blood Count 3.52 4.2-5.4 M/uL Hemoglobin 11.8 12.0-16.0 g/dL Hematocrit 36.5 37-47 % Mean Corpuscular Volume 103.7 80-100 fL Mean Corpuscular Hemoglobin 33.5 25-34 pg Mean Corpuscular Hemoglobin Concent 32.3 32-36 g/dl RDW Standard Deviation 50.7 36.4-46.3 fL RDW Coefficient of Variation 13.4 11.5-14.5 % Platelet Count 198 130-400 K/uL Mean Platelet Volume 9.5 7.4-10.4 fL Sodium Level 140 136-145 mmol/L Potassium Level 3.5 3.5-5.1 mmol/L Chloride Level 108 98-107 mmol/L Carbon Dioxide Level 21 21-32 mmol/L Anion Gap 11.0 3-11 mmol/L Blood Urea Nitrogen 16 7-18 mg/dl Creatinine 0.62 0.60-1.20 mg/dl Est Creatinine Clear Calc Drug Dose 74.2 ml/min Estimated GFR () 127.1 Estimated GFR (Non- 109.7 BUN/Creatinine Ratio 25.1 10-20 Random Glucose 62 70-99 mg/dl Calcium Level 7.9 8.5-10.1 mg/dl Assessment & Plan pt is 45 years old female with SBO, pt is doing better, passed BM, D/C NG, clear diet, may D/C home tomorrow, if pt can tolerated the clear, F/U me 1 week, , clear liquids
[2016-08-30 15:10] VITALS: BP 95/63; PULSE 56; TEMP 36.7; O2SAT 97
[2016-08-30 23:08] VITALS: BP 101/67; PULSE 68; TEMP 36.8; O2SAT 97
[2016-08-31] MEDS: SODIUM CHLORIDE 0.9% 1000ML 1,000 ML IV SCH (05:18)
[2016-08-31 07:56] LABS: BUN/CREATININE RATIO 9.2 (10-20); CALCIUM 7.4 mg/dl (8.5-10.1); CREATININE 0.61 mg/dl (0.60-1.20); POTASSIUM 3.5 mmol/L (3.5-5.1)
--- NOTE | 2016-08-31 07:59 | Surgery Progress Note ---
Surgery Progress Note Date of Service Aug 31, 2016. Subjective Post OP Day: HD # 2 + feeling well, + bowel movement, + flatus, + pain controlled, + diet ( tolerated clear liquids), No complaints, No chest pain, No SOB, No nausea, No vomiting Objective Vital Signs: Date Time Temp Pulse Resp B/P (MAP) Pulse Ox O2 Delivery O2 Flow Rate FiO2 08/31/16 00:05 Room Air 08/30/16 23:08 36.8 68 16 101/67 (78) 97 Room Air 08/30/16 17:45 Room Air 08/30/16 15:10 36.7 56 18 95/63 (74) 97 Room Air General Appearance: WD/WN, no apparent distress Head: normocephalic, atraumatic Neck: trachea midline Respiratory/Chest: lungs clear, normal breath sounds, no respiratory distress, no accessory muscle use Cardiovascular: regular rate, rhythm, no murmur Abdomen: non tender, non distended, soft, + distended Laboratory Results: Results Past 24 Hours Test 08/31/16 06:07 Range/Units Sodium Level 143 136-145 mmol/L Potassium Level 3.5 3.5-5.1 mmol/L Chloride Level 112 98-107 mmol/L Carbon Dioxide Level 25 21-32 mmol/L Anion Gap 6.0 3-11 mmol/L Blood Urea Nitrogen 6 7-18 mg/dl Creatinine 0.61 0.60-1.20 mg/dl Est Creatinine Clear Calc Drug Dose 75.4 ml/min Estimated GFR () 127.8 Estimated GFR (Non- 110.3 BUN/Creatinine Ratio 9.2 10-20 Random Glucose 73 70-99 mg/dl Calcium Level 7.4 8.5-10.1 mg/dl Assessment & Plan Recurrent SBO- resolving - vitals stable - abdominal pain resolved - + bowel sounds - + bowel function, liquid stools and flatus Plan: advance diet to full liquids continue current medical management no surgical indication at this time should follow-up with Dr. Prabhakar in 1 week after discharge
[2016-08-31 08:02] VITALS: BP 95/62; PULSE 68; TEMP 36.5; O2SAT 97
[2016-08-31 08:05] VITALS: O2SAT 97
--- NOTE | 2016-08-31 09:11 | Progress Note ---
Internal Med Progress Note Date of Service: Aug 31, 2016. Provider Documentation: SUBJECTIVE : Patient feeling much better today and eager to be discharged. Abdominal pain has resolved. No nausea, vomiting. Passed flatus, had a BM. Tolerating diet well. No fever, chills. OBJECTIVE: Vital Signs-as noted below Exam: General-AAOX3, no distress HEENT- Atraumatic, normocephalic Neck-Supple Lungs-AEBE, no wheezing, rhonchi Heart-S1, S2 normal, no murmurs Abdomen-Soft, non tender, non distended, No rigidity, BS + Extremities-No edema Lab data as noted below. ASSESSMENT & PLAN: This is a 45 year old female with a hx. of appendectomy ~ 20 years ago, presents with acute abdominal pain found to have small bowel obstruction. SBO: Resolved with conservative Mx -Likely secondary to adhesions. Has hx of SBO 20 years ago, had to undergo bowel resection than. No issues since than. -NGT inserted- removed after 24 hours, IV Fluids, NPO --> Advanced to full liquids -tolerating it well. -Work up- CT abd/pelvis- SBO -Appreciate surgery inputs- cleared for discharge to home. DVT PROPHYLAXIS SCDS TEDS FULL CODE DISPOSITION Eager to be discharged. Okay to discharge home today Vital Signs: Date Time Temp Pulse Resp B/P (MAP) Pulse Ox O2 Delivery O2 Flow Rate FiO2 08/31/16 08:05 97 Room Air 08/31/16 08:02 36.5 68 16 95/62 (73) 97 Room Air 08/31/16 07:15 Room Air 08/31/16 00:05 Room Air 08/30/16 23:08 36.8 68 16 101/67 (78) 97 Room Air 08/30/16 17:45 Room Air 08/30/16 15:10 36.7 56 18 95/63 (74) 97 Room Air Lab Results: Results Past 24 Hours Test 08/31/16 06:07 Range/Units Sodium Level 143 136-145 mmol/L Potassium Level 3.5 3.5-5.1 mmol/L Chloride Level 112 98-107 mmol/L Carbon Dioxide Level 25 21-32 mmol/L Anion Gap 6.0 3-11 mmol/L Blood Urea Nitrogen 6 7-18 mg/dl Creatinine 0.61 0.60-1.20 mg/dl Est Creatinine Clear Calc Drug Dose 75.4 ml/min Estimated GFR () 127.8 Estimated GFR (Non- 110.3 BUN/Creatinine Ratio 9.2 10-20 Random Glucose 73 70-99 mg/dl Calcium Level 7.4 8.5-10.1 mg/dl
[2016-08-31] MEDS ORDERED: ONDA4TAB65 PO (09:12)
--- NOTE | 2016-08-31 09:15 | Discharge Summary ---
Discharge Summary Date of Service Aug 31, 2016. Discharge Summary Admission Date: Aug 29, 2016 at 02:39 Discharge Date: Aug 31, 2016 Discharge Disposition: Home Principal Diagnosis: 1. SBO, conservatively managed Procedures: NG tube insertion--> removal CT scan abd/pelvis IVF Consultations: General surgery Pending Studies/Follow-Up: Instructions / Follow-Up MEDICATION CHANGES Zofran PRN for nausea/vomiting- use it only if needed DIET Advance slowly as tolerated- Regular diet FOLLOW UP 1.Follow up with PCP in 1 week. Please call for appt date/time 2.Follow up with surgery in 1-2 weeks. Medication Reconciliation New Medications: Ondansetron Hcl (Zofran) 4 Mg Tab 4 MG PO Q8H PRN for nausea/vomiting for 10 Days, #20 TAB Admission Information HPI (per Admitting provider): This is a 45 year old female with a hx. of appendectomy ~ 20 years ago, presents with acute abdominal pain; nausea - states she went to an urgent care facility due to her abdominal pain and distention; was given Zofran, but was told to come to the ER for further evaluation. She presented to the ER and CT was done; showed likely partial small bowel obstruction; she states that she's had this in the past once before after her appendectomy; feels the same as before. Last BM was August 27 in the AM. No fevers/chills. Physical Exam (per Admitting): General Appearance: no apparent distress, + thin Head: normocephalic, atraumatic Eyes: normal inspection Respiratory/Chest: chest non-tender, lungs clear, normal breath sounds, no respiratory distress, no accessory muscle use Cardiovascular: regular rate, rhythm, no edema, no murmur Abdomen/GI: + tenderness (diffusely), + abnormal bowel sounds (decreased bowel sounds), + distended Extremities/Musculoskelatal: normal capillary refill, no pedal edema Neurologic/Psych: no motor/sensory deficits, alert, normal mood/affect Skin: normal color Lymphatic: no adenopathy Hospital Course This is a 45 year old female with a hx. of appendectomy ~ 20 years ago, presents with acute abdominal pain found to have small bowel obstruction. SBO: Resolved with conservative Mx -Likely secondary to adhesions. Has hx of SBO 20 years ago, had to undergo bowel resection than. No issues since than. -NGT inserted- removed after 24 hours, IV Fluids, NPO --> Advanced to full liquids -tolerating it well. -Work up- CT abd/pelvis- SBO -Appreciate surgery inputs- cleared for discharge to home. DVT PROPHYLAXIS SCDS TEDS FULL CODE DISPOSITION Eager to be discharged. Okay to discharge home today Total time spent on discharge = 32 MINUTES This includes examination of the patient, discharge planning, medication reconciliation, and communication with other providers. Discharge Instructions Discharge Goals Goal(s): Decrease discomfort, Improve function Activity Recommendations Activity Limitations: resume your previous activity . Instructions / Follow-Up Instructions / Follow-Up MEDICATION CHANGES Zofran PRN for nausea/vomiting- use it only if needed DIET Advance slowly as tolerated- Regular diet FOLLOW UP 1.Follow up with PCP in 1 week. Please call for appt date/time 2.Follow up with surgery in 1-2 weeks. Current Hospital Diet Patient's current hospital diet: Full Liquid Diet Discharge Diet Recommended Diet: Regular Diet (as tolerated) Pending Studies Studies pending at discharge: no Medical Emergencies . Who to Call and When: Medical Emergencies: If at any time you feel your situation is an emergency, please call 911 immediately. . Non-Emergent Contact Non-Emergency issues call your: Primary Care Provider . . "Provider Documentation" section prepared by Bhakti Bhakta. . VTE Core Measure Inpt VTE Proph given/why not?: Treatment not indicated
[2016-08-31 10:36] VITALS: BP 95/62; PULSE 68; TEMP 36.5; O2SAT 97
== END 2016-08-31 11:29 | disposition home or self-care (01) | DRG 390 ==
LOC: C.EDB 21:03 → C.MSW 08-29 02:39 → ENRESERV 08-29 02:51
PROVIDERS: ADMIT Family Medicine; ATTEND Internal Medicine
DX: K56.5 Intestinal adhesions [bands] with obstruction (postinfection) (principal); F17.200 Nicotine dependence, unspecified, uncomplicated; Z90.49 Acquired absence of other specified parts of digestive tract